=== PATIENT | female | born 1990 | race Caucasian/White ===

== ENCOUNTER 2017-06-19 22:23 | Emergency (ER) | payer MEDICAID, OTHER ==
[~2017-06-19] VITALS: Ht 165.1 cm; Wt 75.0 kg
[~2017-06-19 22:23] MED LIST: DOCU-41 PO; HYDROcodone-APAP 5-325 PO; IBUP-1827 PO; PREN-148 PO; THYR15TA PO
[2017-06-19 22:27] VITALS: BP 101/59; PULSE 135; RESP 16; O2SAT 99
--- NOTE | 2017-06-20 00:32 | ED.REPORT ---
HPI-Fever Date of Service Jun 20, 2017 ED Provider: Avinash Trejo MD Pt is a 27 year old female with a history of hypothyroid who presents to the ED complaining of fever (104 F) onset today. She c/o associated headache, dizziness , rash in her mouth onset 1 week ago, and a developing rash on her hands bilaterally today. She denies vomiting and diarrhea. Pt reports that she has a 20 month old child at home with a similar rash. The pt took 400 mg of Ibuprofen at 22:00 yesterday and 200 mg this morning with minimal relief. She denies , but she reports early vaginal bleeding. Pt has a history of false positives in urine tests. Nursing Notes Stated Complaint: FEVER Chief Complaint: General Complaint Nursing Notes Reviewed: Yes Allergies: Coded Allergies: No Known Allergies (Verified Allergy, Unknown, 06/19/17) Scheduled Docusate Sodium (Colace) 100 Mg Capsule 100 MG PO BID Vit No.124/Iron/FA ( Vitamin Tablet) 27 Mg Iron-800 Mcg Tablet 1 EACH PO DAILY Thyroid,Pork ([place] Thyroid) 15 Mg Tablet 260 MG PO BID Scheduled PRN ([HYDROcodone-APAP 5-325]) 1 TABLET TABLET 1-2 TABLET PO Q4H PRN PRN For Pain Ibuprofen (Ibuprofen) 600 Mg Tablet 600 MG PO Q6H PRN PRN For Mild Pain General Time Seen by MD: 23:49 Chief Complaint Fever currently Hx Obtained From: Patient Arrived By: Walk-in Onset Occurred: 5 - 8 hours ago Symptom Duration: Since onset Quality: Painful Severity: Current: Moderate Severity: Maximum: Moderate Recent Healthcare: Recent doctor visit Similar Sx Previous: No Past Medical History Past Medical History Hypothyroid Mastitis Past Surgical History DNC at 7 weeks Reports: Appendectomy Family History Reviewed, not relevant Smoking History Never Smoker Social History Alcohol Use: "Social" Drug Use: Denies drug use Other Social History: Good social support Ambulatory Status Independent Review of Systems Constitutional: Reports: Fever GI: Denies: Diarrhea, Vomiting Skin: Reports Rash (mouth and hands) Neurologic: Reports: Dizziness, Headache Complete sys rev & neg: except as marked. Physical Exam Initial Vital Signs Vital Signs (First) Date Time Temp Pulse Resp B/P Pulse Ox O2 Delivery O2 Flow Rate FiO2 06/19/17 22:27 38.8 135 16 101/59 99 Room Air Initial VS: Reviewed, Vital signs abnormal Head / Eyes: Atraumatic, Normocephalic Abdomen / GI: Soft, Non-tender Extremities: Vascular intact, Neuro intact Psychiatric: Mood/affect normal, Behavior normal General/Constitutional: Awake, Alert, No acute distress Neck: Atraumatic, Full range of motion No cervical lymphadenopathy Respiratory / Chest: Atraumatic, Breath sounds NL, Breath sounds = bilat Cardiovascular: Regular rhythm, Heart sounds NL, No gallop, No murmurs Heart Rate / Rhythm: Positive: Tachycardia Skin: Atraumatic, Warm, Intact Diaphoretic Neurologic: Oriented X3, Speech NL, No motor deficits, No sensory deficits ENT: Atraumatic, Airway patent Numerous red macules in posterior hard palate with a left tonsil that was erythematous and enlarged. Several ulcers on soft palate. Wrist / Hand: Neurologic intact, Vascular intact 3 pinpoint macules on her left hand Interpretation & Diagnostics Lab Results Interpretation Test 06/20/17 00:53 Human Chorionic Gonadotropin, Qual Negative (Negative) Hold [place] Top Tube Received (Received) Lab Results Interpretation: test negative Re-Eval/Medical Decision Med Decision/Clinical Course 27-year-old female who has a rash consistent with denm-ufwm-eno-mouth disease, as does her daughter. Not . She will follow-up with her primary doctor for further evaluation and treatment. Hygiene stressed. Source of Hx: Old records Re-Evaluation/Progress : Time of Eval: 00:46 Re-Evaluation/Progress Note: Pt rechecked. Informed pt of plan for discharge. Pt understands and agrees with plan for discharge. F/U instructions and RTER warnings given. All questions addressed. Counseled Regarding: Diagnosis, Lab results, Need for follow-up, When/why to return to ED Discharge & Departure Impression: Primary Impression: Hand, foot and mouth disease Disposition: Home Discharge Condition All VS Reviewed: Yes Condition: No Change Patient Instructions: Hand, Foot, and Mouth Disease (ED) Additional Instructions: It appears that you have evjb-qdgc-vke-mouth disease (coxsackievirus A). There is no specific treatment for this. Be very careful about hand washing and other hygiene. Your serum test is negative. Follow-up with your regular doctor as needed. Referrals: Tamera Luevano MD (PCP) Scribe Attestation Portions of this note were transcribed by Rachelle Mo. I, Dr. Trejo personally performed the history, physical exam and medical decision-making; I reviewed and confirmed the accuracy of the information in the transcribed note. Signed by: Ron Rust, 06/20/17. copies to: Tamera Luevano MD, Avinash Navarrete MD Jun 20, 2017 00:32 Rachelle Oliveros Jun 20, 2017 00:38
[2017-06-20 02:10] VITALS: BP 104/58; PULSE 126; RESP 20; O2SAT 97
== END 2017-06-20 02:12 | disposition home or self-care (01) ==
LOC: SED 22:23
DX: B08.4 Enteroviral vesicular stomatitis with exanthem (principal); R51 Headache; R42 Dizziness and giddiness; E03.9 Hypothyroidism, unspecified